=== PATIENT | female | born 1950 | race Caucasian/White ===

== ENCOUNTER 2020-01-26 09:04 | Outpatient (CLI) | payer MEDICARE, SELFPAY ==
--- NOTE | ~2020-01-26 | MM_ITS ---
EXAMINATION: MM screening [facility] BI w petar HISTORY: Screening mammogram TECHNIQUE: Craniocaudal and mediolateral oblique 3-D tomosynthesis images were obtained and synthetic 2-D images were generated. CAD analysis was submitted and interpreted. COMPARISON: 08/12/2018, 07/27/2017, 07/03/2016 BREAST PARENCHYMAL COMPOSITION: There are scattered areas of fibroglandular density. FINDINGS: There is no evidence of suspicious mass, calcification, or architectural distortion to sugg est malignancy in either breast. There has been no suspicious interval change. IMPRESSION: 1. No mammographic evidence of malignancy. 2. Recommend routine screening mammography in one year. BI-RADS Category 1: Negative Reviewed, dictated and finalized at location A.
== END 2020-01-26 09:05 | disposition home or self-care (01) ==
PROVIDERS: PCP Family Medicine; Visit Provider Internal Medicine
DX: Z12.31 Encounter for screening mammogram for malignant neoplasm of breast (principal)
CPT/HCPCS: 77063; 77067

== ENCOUNTER → 2020-05-02 11:03 | Outpatient (CLI) | payer MEDICARE, SELFPAY ==
--- NOTE | ~2020-05-02 | DEXA_ITS ---
Bone Density Report Name: Julius Bishop Age: 70 Sex: Female Ethnicity: White Date of : 1950 Indication: osteopenia; parental hip fracture; height loss; Referring Provider: Jasmina Stroud Study: Bone densitometry was performed. Exam Date: May 02, 2020 Accession number: [id number] Bone Density: Region BMD T-score Z-score Classification AP Spine (L1-L4) 0.792 -2.3 -0.3 Osteopenia Femoral Neck (Left) 0.597 -2.3 -0.6 Osteopenia Total Hip (Left) 0.722 -1.8 -0.4 Osteopenia Femoral Neck (Right) 0.620 -2.1 -0.4 Osteopenia Total Hip (Right) 0.759 -1.5 -0.1 Osteopenia Total Hip Mean 0.741 -1.7 -0.3 Osteopenia World Health Organization criteria for BMD impression classify patients as: Normal (T-score at or above -1.0), Osteopenia (T-score between -1.0 and -2.5), or Osteoporosis (T-score at or below -2.5). 10-year Fracture Risk(1): Major Osteoporotic Fracture 21% Hip Fracture 4.1% Reported Risk Factors: [place] (), Neck BMD=0.597, BMI=27.4, parental fracture (1) FRAX(R) Version 3.08. Fracture probability calculated for an untreated patient. Fracture probability may be lower if the patient has received treatment. Previous Exams: Region Exam Age BMD T-score BMD Change BMD Change Date g/cm2 vs Baseline vs Previous AP Spine(L1-L4) 05/02/2020 70 0.792 -2.3 -0.011 -0.011 10/11/2014 64 0.803 -2.2 Total Hip(Left) 05/02/2020 70 0.722 -1.8 -0.006 -0.006 10/11/2014 64 0.728 -1.8 Total Hip(Right) 05/02/2020 70 0.759 -1.5 -0.015 -0.015 10/11/2014 64 0.774 -1.4 *Denotes significance at 95% confidence level, LSC for AP Spine = 0.022 g/cm2, LSC for Total Hip = 0.027 g/cm2 Clinical Information Provided by Patient: Parent has had a hip fracture Patient maximum height was 64 Menopause Age: 53 No regular weight bearing exercise Drinks caffeinated beverages Onset of menses at age 13 Number of children 2 Impression: The patient has low bone mass, based on the Total Spine T-score. The patient has an estimated ten-year risk of hip fracture of 4.1% and an estimated ten-year risk of major fracture of 21%, based on the WHO FRAX algorithm. The patient has risk factors, including: parental hip fracture. No significant bone loss was observed. Discussion: BONE DENSITY IS LOW AT ONE OR MORE SKELETAL SITES. THE PATIENT'S BMD AND CLINICAL RISK FACTORS CONTRIBUTE TO THIS PATIENT'S
== END ==
PROVIDERS: PCP Physician Assistant Medical; Visit Provider Physician Assistant Medical
DX: Z78.0 Asymptomatic menopausal state (principal); M85.89 Other specified disorders of bone density and structure, multiple sites
CPT/HCPCS: 77080

== ENCOUNTER 2021-09-30 14:29 | Outpatient (CLI) | payer MEDICARE, SELFPAY ==
--- NOTE | ~2021-09-30 | MM_ITS ---
EXAMINATION: MM screening [facility] BI w petar HISTORY: Screening TECHNIQUE: Craniocaudal and mediolateral oblique 3-D tomosynthesis images were obtained and synthetic 2-D images were generated. CAD analysis was submitted and interpreted. COMPARISON: Comparison to multiple prior studies sequentially, with oldest reviewed study dated 10/11. BREAST PARENCHYMAL COMPOSITION: There are scattered areas of fibroglandular density. FINDINGS: There is no evidence of suspicious mass, calcification, or architectural distortion to sugg est malignancy in either breast. There has been no suspicious interval change. IMPRESSION: 1. No mammographic evidence of malignancy. 2. Recommend routine screening mammography in one year. BI-RADS Category 1: Negative Reviewed, dictated and finalized at location A. ING TACKLE REPAIRER
== END 2021-09-30 14:30 | disposition home or self-care (01) ==
LOC: ANHIMG 14:31
PROVIDERS: PCP Physician Assistant Medical; Visit Provider Nurse Practitioner Family
DX: Z12.31 Encounter for screening mammogram for malignant neoplasm of breast (principal)
CPT/HCPCS: 77063; 77067

== ENCOUNTER 2022-11-04 14:13 | Outpatient (CLI) | payer MEDICARE, SELFPAY ==
--- NOTE | ~2022-11-04 | DEXA_ITS ---
Bone Density Report Name: SEAN LAMBERT Age: 72 Sex: Female Ethnicity: White Date of : 1950 Indication: osteopenia; parental hip fracture; height loss; cancer; postmenopausal Referring Provider: CASEY GHOSH Study: Bone densitometry was performed. Exam Date: November 04, 2022 Accession number: [id number] Bone Density: Region BMD T-score Z-score Classification AP Spine(L1-L4) 0.793 -2.3 -0.2 Osteopenia Femoral Neck (Left) 0.581 -2.4 -0.6 Osteopenia Total Hip (Left) 0.734 -1.7 -0.2 Osteopenia Femoral Neck (Right) 0.578 -2.4 -0.6 Osteopenia Total Hip (Right) 0.748 -1.6 0.0 Osteopenia Total Hip Mean 0.741 -1.7 -0.1 Osteopenia World Health Organization criteria for BMD impression classify patients as: Normal (T-score at or above -1.0), Osteopenia (T-score between -1.0 and -2.5), or Osteoporosis (T-score at or below -2.5). 10-year Fracture Risk(1): Major Osteoporotic Fracture 22% Hip Fracture 7.6% Reported Risk Factors: [place] (), Neck BMD=0.581, BMI=27.1, parental fracture (1) FRAX(R) Version 3.08. Fracture probability calculated for an untreated patient. Fracture probability may be lower if the patient has received treatment. Previous Exams: Region Exam Age BMD T-score BMD Change BMD Change Date g/cm2 vs Baseline vs Previous Total Hip(Left) 11/04/2022 72 0.734 -1.7 -0.045 (-5.8%) -0.045 (-5.8%) 07/20/2017 67 0.778 -1.3 Total Hip(Right) 11/04/2022 72 0.748 -1.6 -0.076 (-9.3%) -0.076 (-9.3%) 07/20/2017 67 0.825 -1.0 *Denotes significance at 95% confidence level, LSC for Total Hip = 0.027 g/cm2 Clinical Information Provided by Patient: Parent has had a hip fracture Has used the following medications: Vitamin D, Calcium Has the following medical conditions: Cancer Patient maximum height was 64 Does not regularly consume dairy products Drinks caffeinated beverages Onset of menses at age 13 Number of children 2 Impression: The patient has low bone mass, based on the Left Femoral Neck T-score. The patient has an estimated ten-year risk of hip fracture of 7.6% and an estimated ten-year risk of major fracture of 22%, based on the WHO FRAX algorithm. The patient has risk factors, including: parental hip fracture. The BMD for the Total Hip(Left) decreased, changing by -5.8% since the last DXA exam. The BMD for the Total Hip(Right) decreased, changing by -9.3% since the last DXA exam. Discussion: BONE DENSITY IS LOW AT ONE OR MORE SKELETA
--- NOTE | ~2022-11-04 | MM_ITS ---
EXAMINATION: MM screening [facility] BI w petar HISTORY: Screening mammogram TECHNIQUE: Craniocaudal and mediolateral oblique 3-D tomosynthesis images were obtained and synthetic 2-D images were generated. CAD analysis was submitted and interpreted. COMPARISON: 09/30/2021, 01/26/2020, 08/12/2018 BREAST PARENCHYMAL COMPOSITION: There are scattered areas of fibroglandular density. FINDINGS: No suspicious mass, calcification, or architectural distortion are identified in either omaira ast to suggest malignancy. There has been no suspicious interval change. IMPRESSION: 1. No mammographic evidence of malignancy. 2. Recommend routine screening mammography in one year. BI-RADS Category 1: Negative Reviewed, dictated and finalized at location A. W MACHINE OPERATOR SINGLE SPINDLE
== END 2022-11-04 14:14 | disposition home or self-care (01) ==
LOC: ANHIMG 14:14
PROVIDERS: PCP Family Medicine; Visit Provider Nurse Practitioner Family
DX: Z12.31 Encounter for screening mammogram for malignant neoplasm of breast (principal); N95.9 Unspecified menopausal and perimenopausal disorder; M85.80 Other specified disorders of bone density and structure, unspecified site; M85.89 Other specified disorders of bone density and structure, multiple sites
CPT/HCPCS: 77063; 77067; 77080

== ENCOUNTER 2024-07-04 13:51 | Outpatient (CLI) | payer MEDICARE, OTHER, SELFPAY ==
--- NOTE | ~2024-07-04 | MM_ITS ---
EXAMINATION: MM screening [facility] BI w petar HISTORY: Screening TECHNIQUE: Craniocaudal and mediolateral oblique 3-D tomosynthesis images were obtained and synthetic 2-D images were generated. CAD analysis was submitted and interpreted. COMPARISON: Comparison to multiple prior studies sequentially, with oldest reviewed study dated 10/2015. BREAST PARENCHYMAL COMPOSITION: Not dense: There are scattered areas of fibroglandular density. FINDINGS: There is no evidence of suspicious mass, calcification, or architectural distortion to sugg est malignancy in either breast. There has been no suspicious interval change. IMPRESSION: 1. No mammographic evidence of malignancy. 2. Recommend routine screening mammography in one year. BI-RADS Category 1: Negative Reviewed, dictated and finalized at location B. AL MERCHANDISING ASSOCIATE
== END 2024-07-04 13:52 | disposition home or self-care (01) ==
LOC: ANHIMG 13:52
PROVIDERS: PCP Family Medicine; Visit Provider Physician Assistant
DX: Z12.31 Encounter for screening mammogram for malignant neoplasm of breast (principal)
CPT/HCPCS: 77063; 77067

== ENCOUNTER 2024-11-21 12:48 | Outpatient (CLI) | payer MEDICARE, OTHER, SELFPAY ==
--- NOTE | 2024-11-21 13:10 | ECG_ITS ---
Test Date: 2024-11-21 13:17:27 Measurements Intervals [place] Rate: 85 P: 41 [place]: 159 QRS: 6 QRSD: 74 T: 27 QT: 356 QTc: 425 Interpretive Statements SINUS RHYTHM POSSIBLE LEFT ATRIAL ENLARGEMENT [-0.1mV P-WAVE IN V1/V2] No previous ECG available for comparison Electronically Signed On 11-22-2024 15:32:10 CDT by Garrett Pedersen M.D.
--- OUTSIDE RECORDS SUMMARY | 2024-11-21 14:32 | XMS_ITS | Referral Summary ---
Author Organization [facility] Address [address] [place] [address] Phone Care Team Providers Care Electric Distribution Engineer Name Role Phone Karthikeyan Aguilar MD Unavailable [phone] Virgilio Santana MD Primary Care Provider [phone] Allergies Active Allergy Reactions Criticality Noted Date Comments Codeine Stomach upset Low 07/27/2018 Medications SUMAtriptan (IMITREX) 25 mg tabletIndication s:Migraine,If needed Take 25 mg by mouth once as needed for migraine. May repeat dose once in 2 hours if no relief. Do not exceed 2 doses in 24 hours. Active levothyroxine (SYNTHROID) 100 mcg tablet TAKE 1 TABLET(100 MCG) BY MOUTH DAILY 90 tablet 07/24/2020 Active Active Problems Problem Noted Date Diagnosed Date Lymphoma, Hodgkin's 12/01/1995 Cancer Staging:Clinical stage from 07/27/1996:Stage II(Hodgkin lymphoma, A - Asymptomatic) - Signed by Karthikeyan Aguilar MD on 07/27/2018 Immunizations Immunization Administration Dates Next Due Influenza, Unspecified 05/30/2019,06/26/2018,,07/15/2016 Pneumococcal, Unspecified 06/26/2018 Social History Tobacco Use Types Packs/Day Years Used Date Smoking Tobacco: Former Cigarettes Q uit: 2004 Smokeless Tobacco: Never Alcohol Use Standard Drinks/Week Comments No 0 (1 standard drink = 0.6 oz pur e alcohol) Personal Safety Answer Date Recorded Getting School Help Needed Not on file 11/14 Comments Unknown Sex and Gender Information Value Date Recorded Sex Assigned at Not on file Legal Sex Female 2:11 AM TOURIST ADVISER Gender Identity Not on file Sexual Orientation Not on file Last Filed Vital Signs Vital Sign Reading Time Taken Comments Blood Pressure 135/67 09/28/2019 11:45 AM TOURIST ADVISER Pulse 86 09/28/2019 11:45 AM TOURIST ADVISER Temperature 36.5 C (97.7 F) 09/28/2019 11:45 AM TOURIST ADVISER Respiratory Rate 16 09/28/2019 11:4 5 AM TOURIST ADVISER Oxygen Saturation 98% 09/28/2019 11: 45 AM TOURIST ADVISER Inhaled Oxygen Concentration - - Weight 67.9 kg (149 lb 12.8 oz) 020 11:45 AM TOURIST ADVISER Height 162.6 cm (5' 4.02 ) 09/28/2019 1 1:45 AM TOURIST ADVISER Body Mass Index 25.7 09/28/2019 11:45 AM TOURIST ADVISER Plan of Treatment Not on file Insurance MEDICARE [facility] Care Teams Electric Distribution Engineer Relationship Specialty Start Date End Date Virgilio Santana MD PCP - General Family Medicine 07/27/18 Karthikeyan Aguilar MD Medical Oncologist/Director Of Pediatric Rehabilitation Hematology and Oncology 07/20/18
--- OUTSIDE RECORDS SUMMARY | 2024-11-21 14:32 | XMS_ITS | Encounter Summary ---
Author Organization [facility] Address [address] [facility] [place] [address] Phone Care Team Providers Care Commercial Real Estate Sales Manager Name Role Phone Karthikeyan Aguilar MD Unavailable [phone] Virgilio Santana MD Primary Care Provider [phone] Encounter Details Date Type Department Care Team (Latest Contact Info) Description 01/26/2020 Orders Only [facility] Scanning, Provider Social History Tobacco Use Types Packs/Day Years Used Date Smoking Tobacco: Former Cigarettes Q uit: 2004 Smokeless Tobacco: Never Alcohol Use Standard Drinks/Week Comments No 0 (1 standard drink = 0.6 oz pur e alcohol) Comments Unknown Sex and Gender Information Value Date Recorded Sex Assigned at Not on file Legal Sex Female 2:11 AM DESIGN SUPERVISOR Gender Identity Not on file Sexual Orientation Not on file documented as of this encounter Plan of Treatment Not on file documented as of this encounter Procedures Procedure Name Priority Date/Time Associated Diagnosis Comments SCAN - RADIOLOGY/IMAGING 01/26/2020 documented in this encounter Results * SCAN - RADIOLOGY/IMAGING (01/26/2020) Anatomical Region Laterality Modality Other us Provider Scanning Final Result documented in this encounter Visit Diagnoses Not on filedocumented in this encounter Care Teams Commercial Real Estate Sales Manager Relationship Specialty Start Date End Date Virgilio Santana MD PCP - General Family Medicine 07/27/18 Karthikeyan Aguilar MD Medical Oncologist/Palletizer Hematology and Oncology 07/20/18 documented as of this encounter
--- OUTSIDE RECORDS SUMMARY | 2024-11-21 14:32 | XMS_ITS | Clinical Summary ---
Author Organization [facility] Address [address] [place] [address] Phone Care Team Providers Care Nuclear Station Operator Name Role Phone Karthikeyan Aguilar MD Unavailable [phone] Virgilio Santana MD Primary Care Provider [phone] Allergies Active Allergy Reactions Criticality Noted Date [...] Due Influenza, Unspecified 05/30/2019,06/26/2018,,07/15/2016 Pneumococcal, Unspecified 06/26/2018 Surgical History Surgery Date Site/Laterality Comments COLONOSCOPY Medical History Medical History Date Comments Lymphoma (HCC) Hypercholesteremia Family History Medical History Relation Name Comments Non-Hodgkin's Lymphoma Brother Prostate cancer Brother Cancer Father Diabetes Mother Skin cancer Sister Relation Name Status Comments Brother Father unkown age of d iagnosis and type of cancer Mother Sister Social History Tobacco Use Types Packs/Day Years Used Date Smoking Tobacco: Former Cigarettes Q uit: 2005 Smokeless Tobacco: Never Alcohol Use Standard Drinks/Week Comments No 0 (1 standard drink = 0.6 oz pur e alcohol) Personal Safety Answer Date Recorded Getting School Help Needed Not on file 11/14 Comments Unknown Sex and Gender Information Value Date Recorded Sex Assigned at Not on file Legal Sex Female 2:11 AM TRANSIT POLICE OFFICER Gender Identity Not on file Sexual Orientation Not on file Obstetrics History Last Filed Vital Signs Vital Sign Reading Time Taken Comments Blood Pressure 135/67 09/28/2019 11:45 AM TRANSIT POLICE OFFICER Pulse 86 09/28/2019 11:45 AM TRANSIT POLICE OFFICER Temperature 36.5 C (97.7 F) 09/28/2019 11:45 AM TRANSIT POLICE OFFICER Respiratory Rate 16 09/28/2019 11:4 5 AM TRANSIT POLICE OFFICER Oxygen Saturation 98% 09/28/2019 11: 45 AM TRANSIT POLICE OFFICER Inhaled Oxygen Concentration - - Weight 67.9 kg (149 lb 12.8 oz) 020 11:45 AM TRANSIT POLICE OFFICER Height 162.6 cm (5' 4.02 ) 09/28/2019 1 1:45 AM TRANSIT POLICE OFFICER Body Mass Index 25.7 09/28/2019 11:45 AM TRANSIT POLICE OFFICER Plan of Treatment Not on file Insurance MEDICARE [facility] Care Teams Nuclear Station Operator Relationship Specialty Start Date End Date Virgilio Santana MD PCP - General Family Medicine 07/27/18 Karthikeyan Aguilar MD Medical Oncologist/Corporate Strategist Hematology and Oncology 07/20/18
== END 2024-11-21 12:49 | disposition home or self-care (01) ==
LOC: ANHCARD 12:51
PROVIDERS: PCP Family Medicine; Visit Provider Nurse Practitioner Family
DX: R06.02 Shortness of breath (principal)
CPT/HCPCS: 93005

== ENCOUNTER 2024-12-05 08:07 | Outpatient (CLI) | payer MEDICARE, OTHER, SELFPAY ==
--- OUTSIDE RECORDS SUMMARY | 2024-12-05 08:18 | XMS_ITS | Clinical Summary ---
Author Organization [facility] Address [address] [place] [address] Phone Care Team Providers Care Sky Line Yarder Name Role Phone Karthikeyan Aguilar MD Unavailable [phone] Virgilio Santana MD Primary Care Provider [phone] Allergies Active Allergy Reactions Criticality Noted Date [...] on file Legal Sex Female 2:11 AM ANTENNA MACHINE OPERATOR Gender Identity Not on file Sexual Orientation Not on file Obstetrics History Last Filed Vital Signs Vital Sign Reading Time Taken Comments Blood Pressure 135/67 09/28/2019 11:45 AM ANTENNA MACHINE OPERATOR Pulse 86 09/28/2019 11:45 AM ANTENNA MACHINE OPERATOR Temperature 36.5 C (97.7 F) 09/28/2019 11:45 AM ANTENNA MACHINE OPERATOR Respiratory Rate 16 09/28/2019 11:4 5 AM ANTENNA MACHINE OPERATOR Oxygen Saturation 98% 09/28/2019 11: 45 AM ANTENNA MACHINE OPERATOR Inhaled Oxygen Concentration - - Weight 67.9 kg (149 lb 12.8 oz) 020 11:45 AM ANTENNA MACHINE OPERATOR Height 162.6 cm (5' 4.02 ) 09/28/2019 1 1:45 AM ANTENNA MACHINE OPERATOR Body Mass Index 25.7 09/28/2019 11:45 AM ANTENNA MACHINE OPERATOR Plan of Treatment Not on file Insurance MEDICARE [facility] Care Teams Sky Line Yarder Relationship Specialty Start Date End Date Virgilio Santana MD PCP - General Family Medicine 07/27/18 Karthikeyan Aguilar MD Medical Oncologist/Car Unloader Helper Hematology and Oncology 07/20/18
--- OUTSIDE RECORDS SUMMARY | 2024-12-05 08:18 | XMS_ITS | Encounter Summary ---
Author Organization [facility] Address [address] [place] [address] Phone Care Team Providers Care Cell Inspector Name Role Phone Karthikeyan Aguilar MD Unavailable [phone] Virgilio Santana MD Primary Care Provider [phone] Encounter Details Date Type Department Care Team [...] on file Legal Sex Female 2:11 AM FERRYBOAT OPERATOR HELPER Gender Identity Not on file Sexual Orientation [...] on filedocumented in this encounter Care Teams Cell Inspector Relationship Specialty Start Date End Date Virgilio Santana MD PCP - General Family Medicine 07/27/18 Karthikeyan Aguilar MD Medical Oncologist/Public Service Director Hematology and Oncology 07/20/18 documented as of this encounter
--- OUTSIDE RECORDS SUMMARY | 2024-12-05 08:18 | XMS_ITS | Referral Summary ---
Author Organization [facility] Address [address] [place] [address] Phone Care Team Providers Care Medicaid Specialist Name Role Phone Karthikeyan Aguilar MD Unavailable [phone] Virgilio Santana MD Primary Care Provider [phone] Allergies Active Allergy Reactions Criticality Noted Date [...] on file Legal Sex Female 2:11 AM FORM WORKER Gender Identity Not on file Sexual Orientation Not on file Last Filed Vital Signs Vital Sign Reading Time Taken Comments Blood Pressure 135/67 09/28/2019 11:45 AM FORM WORKER Pulse 86 09/28/2019 11:45 AM FORM WORKER Temperature 36.5 C (97.7 F) 09/28/2019 11:45 AM FORM WORKER Respiratory Rate 16 09/28/2019 11:4 5 AM FORM WORKER Oxygen Saturation 98% 09/28/2019 11: 45 AM FORM WORKER Inhaled Oxygen Concentration - - Weight 67.9 kg (149 lb 12.8 oz) 020 11:45 AM FORM WORKER Height 162.6 cm (5' 4.02 ) 09/28/2019 1 1:45 AM FORM WORKER Body Mass Index 25.7 09/28/2019 11:45 AM FORM WORKER Plan of Treatment Not on file Insurance MEDICARE [facility] Care Teams Medicaid Specialist Relationship Specialty Start Date End Date Virgilio Santana MD PCP - General Family Medicine 07/27/18 Karthikeyan Aguilar MD Medical Oncologist/Engineer Chief Hematology and Oncology 07/20/18
--- NOTE | 2024-12-05 08:40 | EST_ITS ---
Patient Info Name: Julius Bishop Age: 74 years : 1950 Gender: Female Ht: 64 in Wt: 160 lbs BSA: 1.83 m2 HR: 82 bpm BP: 129 / 92 mmHg Exam Date: 12/05/2024 8:51 AM Exam Location: Echo Lab Patient Status: Outpatient Admit Date: 12/05/2024 Staff Ordering Physician: Ruth Guzman Attending Provider: Ruth Guzman Exercise Technologist: Anabel Sykes RDCS Exercise Physician: Santiago Martinez DO Exam Type: CA stress test treadmill Study Info A treadmill exercise stress test was performed. Summary 1. 1. Negative Danilo exercise stress test for ischemic ST changes by ECG criteria. 2. 2. Reduced functional capacity, achieving 4.7 METs of workload. 3. 3. Appropriate HR response to exercise. 4. 4. Appropriate HR recovery at 1 minute post exercise. 5. 5. No imaging with stress testing. 6. 6. Patient informed of the above results. Protocol: Danilo Stress ECG Details Stage: REST Duration (min): 1 min : 15 sec Speed (mph): 0.0 Grade (%): 0 HR (bpm): 84 SBP (mmHg): 129 DBP (mmHg): 92 METS: --- Stage: REST Duration (min): 8 min : 47 sec Speed (mph): 0.0 Grade (%): 0 HR (bpm): 86 SBP (mmHg): 129 DBP (mmHg): 92 METS: --- Stage: STAGE 1 Duration (min): 1 min : 0 sec Speed (mph): 1.7 Grade (%): 10 HR (bpm): 118 SBP (mmHg): 129 DBP (mmHg): 92 METS: --- Stage: STAGE 1 Duration (min): 2 min : 0 sec Speed (mph): 1.7 Grade (%): 10 HR (bpm): 127 SBP (mmHg): 129 DBP (mmHg): 92 METS: --- Stage: STAGE 1 Duration (min): 3 min : 0 sec Speed (mph): 1.7 Grade (%): 10 HR (bpm): 133 SBP (mmHg): 165 DBP (mmHg): 100 METS: --- Stage: STAGE 2 Duration (min): 0 min : 1 sec Speed (mph): 2.5 Grade (%): 12 HR (bpm): 133 SBP (mmHg): 165 DBP (mmHg): 100 METS: --- Stage: RECOVERY Duration (min): 0 min : 58 sec Speed (mph): 0.0 Grade (%): 0 HR (bpm): 119 SBP (mmHg): 165 DBP (mmHg): 100 METS: --- Stage: RECOVERY Duration (min): 1 min : 58 sec Speed (mph): 0.0 Grade (%): 0 HR (bpm): 104 SBP (mmHg): 165 DBP (mmHg): 100 METS: --- Stage: RECOVERY Duration (min): 2 min : 58 sec Speed (mph): 0.0 Grade (%): 0 HR (bpm): 95 SBP (mmHg): 142 DBP (mmHg): 96 METS: --- Stage: RECOVERY Duration (min): 3 min : 12 sec Speed (mph): 0.0 Grade (%): 0 HR (bpm): 89 SBP (mmHg): 142 DBP (mmHg): 96 METS: --- Rest HR: 86 bpm Peak HR: 133 bpm Rest Sys BP: 129 mmHg Peak Sys BP: 165 mmHg Max Pred HR: 148 bpm % Max Pred HR: 90 % Target HR: 126 bpm Max RPP: 21,945 bpm*mmHg Temple Score: 1 Termination Reason: Reached target heart rate or workload Cardiac Symptoms: Shortness of breath Max ST Seg Deviation: 0.40 mm Total Time: 3 min : 1 sec Rest Walsh BP: 92 mmHg Peak Walsh BP: 100 mmHg Angina Score: None Total METS: 4.7 Resting ECG Sinus rhythm. Stress ECG No ST changes. Arrhythmias None. Report Signatures
== END 2024-12-05 08:08 | disposition home or self-care (01) ==
PROVIDERS: PCP Family Medicine; Visit Provider Nurse Practitioner Family
DX: R06.02 Shortness of breath (principal); R94.31 Abnormal electrocardiogram [ECG] [EKG]
CPT/HCPCS: 93017

== ENCOUNTER 2025-01-09 00:15 | Day surgery (SDC) | payer MEDICARE, OTHER, SELFPAY ==
[2025-01-04 09:52] VITALS: BMI 26.8
--- OUTSIDE RECORDS SUMMARY | 2025-01-09 00:18 | XMS_ITS | Encounter Summary ---
Author Organization [facility] Address [address] [place] [address] Phone Care Team Providers Care Financial Aid Administrator Name Role Phone Karthikeyan Aguilar MD Unavailable [phone] Virgilio Santana MD Primary Care Provider [phone] Encounter Details Date Type Department Care Team [...] on file Legal Sex Female 2:11 AM EMAIL MARKETER Gender Identity Not on file Sexual Orientation [...] on filedocumented in this encounter Care Teams Financial Aid Administrator Relationship Specialty Start Date End Date Virgilio Santana MD PCP - General Family Medicine 07/27/18 Karthikeyan Aguilar MD Medical Oncologist/Surface Ship Usw Supervisor Hematology and Oncology 07/20/18 documented as of this encounter
--- OUTSIDE RECORDS SUMMARY | 2025-01-09 00:18 | XMS_ITS | Referral Summary ---
Author Organization [facility] Address [address] [place] [address] Phone Care Team Providers Care Fruit Sprayer Name Role Phone Karthikeyan Aguilar MD Unavailable [phone] Virgilio Santana MD Primary Care Provider [phone] Allergies Active Allergy Reactions Criticality Noted Date [...] on file Legal Sex Female 2:11 AM PERSONAL CAREGIVER Gender Identity Not on file Sexual Orientation Not on file Last Filed Vital Signs Vital Sign Reading Time Taken Comments Blood Pressure 135/67 09/28/2019 11:45 AM PERSONAL CAREGIVER Pulse 86 09/28/2019 11:45 AM PERSONAL CAREGIVER Temperature 36.5 C (97.7 F) 09/28/2019 11:45 AM PERSONAL CAREGIVER Respiratory Rate 16 09/28/2019 11:4 5 AM PERSONAL CAREGIVER Oxygen Saturation 98% 09/28/2019 11: 45 AM PERSONAL CAREGIVER Inhaled Oxygen Concentration - - Weight 67.9 kg (149 lb 12.8 oz) 020 11:45 AM PERSONAL CAREGIVER Height 162.6 cm (5' 4.02 ) 09/28/2019 1 1:45 AM PERSONAL CAREGIVER Body Mass Index 25.7 09/28/2019 11:45 AM PERSONAL CAREGIVER Plan of Treatment Not on file Insurance [facility]ICARE [facility] Care Teams Fruit Sprayer Relationship Specialty Start Date End Date Virgilio Santana MD PCP - General Family Medicine 07/27/18 Karthikeyan Aguilar MD Medical Oncologist/Artificial Breeding Distributor Hematology and Oncology 07/20/18
--- OUTSIDE RECORDS SUMMARY | 2025-01-09 00:18 | XMS_ITS | Clinical Summary ---
Author Organization [facility] Address [address] [place] [address] Phone Care Team Providers Care Secondary Special Education Teacher Name Role Phone Karthikeyan Aguilar MD Unavailable [phone] Virgilio Santana MD Primary Care Provider [phone] Allergies Active Allergy Reactions Criticality Noted Date [...] on file Legal Sex Female 2:11 AM GUIDE [facility] Gender Identity Not on file Sexual Orientation Not on file Obstetrics History Last Filed Vital Signs Vital Sign Reading Time Taken Comments Blood Pressure 135/67 09/28/2019 11:45 AM [facility] Pulse 86 09/28/2019 11:45 AM GUIDE EXCURSION Temperature 36.5 C (97.7 F) 09/28/2019 11:45 AM GUIDE EXCURSION Respiratory Rate 16 09/28/2019 11:4 5 AM GUIDE [facility] Oxygen Saturation 98% 09/28/2019 11: 45 AM GUIDE EXCURSION Inhaled Oxygen Concentration - - Weight 67.9 kg (149 lb 12.8 oz) 020 11:45 AM GUIDE EXCURSION Height 162.6 cm (5' 4.02 ) 09/28/2019 1 1:45 AM GUIDE EXCURSION Body Mass Index 25.7 09/28/2019 11:45 AM GUIDE EXCURSION Plan of Treatment Not on file [place] [address] [facility] Care Teams Secondary Special Education Teacher Relationship Specialty Start Date End Date Virgilio Santana MD PCP - General Family Medicine 07/27/18 Karthikeyan Aguilar MD Medical Oncologist/Customer Energy Specialist Hematology and Oncology 07/20/18
[2025-01-09 09:45] VITALS: BP 131/80; PULSE 86; RESP 18; TEMP 36.7; O2SAT 97
[2025-01-09] MEDS: LACTATED RINGERS 1,000 ML 150 ML IV CONT (09:52)
--- NOTE | 2025-01-09 09:57 | WPDANESEPPF ---
Anes - Initial Pre Proc Eval Procedure: Operation Date: 01/09/25 11:00 Proposed Procedures p Colonoscopy - Joe Silva MD Date/Time: 01/09/25 09:57 Surgeon: Joe Silva MD Pre Op Diagnosis: Other fecal abnormalities Patient Data Age: 74 Gender: F Height: 1.63 m Weight: 68.6 kg Last Vital Signs Temp 36.7 C 01/09/25 09:45 Pulse 86 01/09/25 09:45 Resp 18 01/09/25 09:45 BP 131/80 01/09/25 09:45 Pulse Ox 97 01/09/25 09:45 O2 Del Method Room Air 01/09/25 09:45 Allergies Allergy/AdvReac Type Severity Reaction Status Date / Time clarithromycin AdvReac Intermediate Nausea Verified 01/09/25 09:43 codeine AdvReac Intermediate Nausea Verified 01/09/25 09:43 Home Medications ?Medication ?Instructions ?Recorded ?Confirmed ?Type fluticasone propionate 50 1 spray intranasal BID #16 grams 11/04/23 01/09/25 Rx mcg/actuation nasal spray,suspension (Flonase Allergy Relief) sumatriptan succinate 100 mg tablet See Rx Instructions .Route 09/28/24 01/04/25 Rx .COMPLEX #9 tabs levothyroxine 100 mcg tablet 100 mcg PO DAILY #90 tabs 10/25/24 01/09/25 Rx calcium carbonate (Calcium 600) 600 mg PO DAILY 01/04/25 01/09/25 History cholecalciferol (vitamin D3) 125 125 mcg PO DAILY 01/04/25 01/09/25 History mcg (5,000 unit) tablet (Vitamin D3) loratadine 10 mg tablet 10 mg PO DAILY 01/04/25 01/09/25 History (Allerclear) omeprazole 20 mg capsule,delayed 20 mg PO DAILY 01/04/25 01/09/25 History release psyllium husk 0.52 gram capsule 0.52 g PO DAILY 01/04/25 01/09/25 History (Daily Fiber) Patient hx anesthesia problems: none Family hx anesthesia problems: none Results Review: All pre-operative results and documents have been reviewed as part of the pre-operative evaluation. ON LICENSE OF [facility] Past Medical History Medical History Hodgkin lymphoma Tubal ligation evaluation BMI 28.0-28.9,adult Surgical History Surgical History Hx of colonoscopy Family History Family History Sibling Hypertension Migraine Malignant neoplasm of prostate Mother Family history of diabetes mellitus in first degree relative Diabetes mellitus Father , cancer No problems noted. Social History Social History Smoking packs per day: 0.5 Smoking cigarettes per day: 10.0 Years smoked: 25 Smoking pack-years: 12.50 Smoking status: Former smoker Tobacco type: cigarettes Second hand tobacco smoke exposure: Yes Alcohol intake: never Substance use: never Substance use type: does not use Do You Feel Safe in your Home?: Yes Lack of Transportation: No Lack of Food: Never True Current Housing: I Have Housing Concerned About Future Housing: No Difficulty Paying Gas/Electric Bills: No Difficulty Paying for Meds: No Currently Unemployed: No Education: Trade/Vocational Certificate Difficulty w/ Childcare or Family Care: No Living arrangements: with family Occupation/Education: retired 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 Gender identity (if verbalized by the patient): Female Spiritual care concerns: No Anes - Eval Final PreProcedure Day of Procedure 01/09/25 09:57 Patient weight: overweight Heart: regular rate and rhythm Lungs: clear to auscultation Airway: Mallampati scale class II Neurological: alert and oriented Last oral intake: >/= 8 hours ASA classification: III Emergent: no Anesthetic plan: proceed Anesthesia type and monitoring: general GIVS and standard monitoring Results Review: All pre-operative results and documents have been reviewed as part of the pre-operative evaluation. Informed Consent: The patient's anesthetic plan and its attendant risks and benefits were discussed with the patient/family/POA. Questions were solicited and answers provided to the satisfaction of the patient/family/POA.
--- NOTE | 2025-01-09 10:52 | P.HP_ITS ---
H&P: HPI History of Present Illness Date/Time: 01/09/25 10:52 Chief Complaint: Positive Cologuard test Narrative: the patient was recently found to have a Cologuard positive test. Her last colonoscopy was over 10 years ago. She is asymptomatic from the GI standpoint. There is no family history of colorectal cancer. Review of Systems Review of Systems: All systems reviewed & are unremarkable except as noted in HPI and below PMFSH Past Medical History Medical History Hodgkin lymphoma Tubal ligation evaluation BMI 28.0-28.9,adult Surgical History Surgical History Hx of colonoscopy Family History Family History Sibling Hypertension Migraine Malignant neoplasm of prostate Mother Family history of diabetes mellitus in first degree relative Diabetes mellitus Father , cancer No problems noted. Social History Social History Smoking packs per day: 0.5 Smoking cigarettes per day: 10.0 Years smoked: 25 Smoking pack-years: 12.50 Smoking status: Former smoker Tobacco type: cigarettes Second hand tobacco smoke exposure: Yes Alcohol intake: never Substance use: never Substance use type: does not use Do You Feel Safe in your Home?: Yes Lack of Transportation: No Lack of Food: Never True Current Housing: I Have Housing Concerned About Future Housing: No Difficulty Paying Gas/Electric Bills: No Difficulty Paying for Meds: No Currently Unemployed: No Education: Trade/Vocational Certificate Difficulty w/ Childcare or Family Care: No Living arrangements: with family Occupation/Education: retired 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 Gender identity (if verbalized by the patient): Female Spiritual care concerns: No Meds Home Medications and Allergies Home Medications ?Medication ?Instructions ?Recorded ?Confirmed ?Type fluticasone propionate 50 1 spray intranasal BID #16 grams 11/04/23 01/09/25 Rx mcg/actuation nasal spray,suspension (Flonase Allergy Relief) sumatriptan succinate 100 mg tablet See Rx Instructions .Route 09/28/24 01/04/25 Rx .COMPLEX #9 tabs levothyroxine 100 mcg tablet 100 mcg PO DAILY #90 tabs 10/25/24 01/09/25 Rx calcium carbonate (Calcium 600) 600 mg PO DAILY 01/04/25 01/09/25 History cholecalciferol (vitamin D3) 125 125 mcg PO DAILY 01/04/25 01/09/25 History mcg (5,000 unit) tablet (Vitamin D3) loratadine 10 mg tablet 10 mg PO DAILY 01/04/25 01/09/25 History (Allerclear) omeprazole 20 mg capsule,delayed 20 mg PO DAILY 01/04/25 01/09/25 History release psyllium husk 0.52 gram capsule 0.52 g PO DAILY 01/04/25 01/09/25 History (Daily Fiber) Allergies Allergy/AdvReac Type Severity Reaction Status Date / Time clarithromycin AdvReac Intermediate Nausea Verified 01/09/25 09:43 codeine AdvReac Intermediate Nausea Verified 01/09/25 09:43 Vital Signs Vital Signs - 24 hr 01/09/25 09:45 Temperature 98.1 F Pulse Rate 86 Respiratory Rate 18 Blood Pressure 131/80 Pulse Oximetry 97 Oxygen Delivery Room Air Exam Const: General: cooperative and healthy appearing Resp: Effort & Inspection: normal respiratory effort and able to speak in complete sentences Auscultation: clear to auscultation bilaterally Cardio: Rate: regular rate Rhythm: regular rhythm GI: Inspection: normal to inspection GI Palp: No No hepatosplenomegaly present Auscultation: normal bowel sounds Rectal Exam: deferred Skin: General skin exam: normal color Psych: Appearance: grossly normal Mental Status: mental status grossly normal Assessment and Plan Assessment and plan (1) Positive colorectal cancer screening using Cologuard test: Code(s): R19.5 - Other fecal abnormalities Status: Acute Assessment and Plan: The patient is deemed a good candidate for the procedure. Consent signed. Will proceed.
[2025-01-09] MEDS: SIMETHICONE ORAL SUSPENSION 20 MG/0.3 ML 30 ML BOTTLE 0.6 ML IRRIGATION (11:06)
[2025-01-09 11:14] VITALS: BP 94/55; PULSE 87; RESP 16; O2SAT 92
[2025-01-09 11:24] VITALS: BP 111/58; PULSE 85; RESP 17; O2SAT 97
[2025-01-09 11:34] VITALS: BP 114/75; PULSE 72; RESP 22; O2SAT 96
== END 2025-01-09 11:49 | disposition home or self-care (01) ==
PROVIDERS: PCP Family Medicine; Referring Provider Nurse Practitioner Family; Visit Provider Internal Medicine Gastroenterology
PROC: 0DJD8ZZ Inspection of Lower Intestinal Tract, Via Natural or Artificial Opening Endoscopic (ICD-10-PCS; CPT 45378; principal; 2025-01-09 11:00)
DX: R19.5 Other fecal abnormalities (principal); D12.2 Benign neoplasm of ascending colon; K57.30 Diverticulosis of large intestine without perforation or abscess without bleeding; Z85.72 Personal history of non-Hodgkin lymphomas; Z87.891 Personal history of nicotine dependence; Z80.42 Family history of malignant neoplasm of prostate
CPT/HCPCS: 45385; 88305; J2003; J2704; J7120

== ENCOUNTER 2025-06-28 19:09 | Emergency (ER) | payer MEDICARE, OTHER, SELFPAY ==
[2025-06-28 19:19] VITALS: BP 140/77; PULSE 95; RESP 16; TEMP 37.1; O2SAT 98
--- NOTE | 2025-06-28 19:29 | ED.EAR ---
HPI - Ear Problem General Chief complaint: Ear Stated complaint: Ear Pain Time Seen by Provider: 06/28/25 19:29 Source: patient Mode of arrival: ambulatory Limitations: no limitations History of Present Illness HPI Narrative: 75-year-old he female presents with complaint of muffled hearing to bilateral ears. Reports clogged sensation. Reports congestion, postnasal drainage. Takes Claritin daily. All systems reviewed and negative except as noted above. Related Data Home Medications ?Medication ?Instructions ?Recorded ?Confirmed ?Last Taken ?Type calcium carbonate (Calcium 600) 600 mg PO DAILY 01/04/25 06/28/25 01/08/25 History cholecalciferol (vitamin D3) 125 125 mcg PO DAILY 01/04/25 06/28/25 01/08/25 History mcg (5,000 unit) tablet (Vitamin D3) loratadine 10 mg tablet 10 mg PO DAILY 01/04/25 06/28/25 01/08/25 History (Allerclear) omeprazole 20 mg capsule,delayed 20 mg PO DAILY 01/04/25 06/28/25 01/08/25 History release Allergies Allergy/AdvReac Type Severity Reaction Status Date / Time clarithromycin AdvReac Intermediate Nausea Verified 06/28/25 19:21 codeine AdvReac Intermediate Nausea Verified 06/28/25 19:21 [facility] Past Medical History Medical History Hodgkin lymphoma Tubal ligation evaluation BMI 28.0-28.9,adult Surgical History Surgical History Hx of colonoscopy Family History Family History Sibling Hypertension Migraine Malignant neoplasm of prostate Mother Family history of diabetes mellitus in first degree relative Diabetes mellitus Father , cancer No problems noted. Social History Social History Smoking packs per day: 0.5 Smoking cigarettes per day: 10.0 Years smoked: 25 Smoking pack-years: 12.50 Smoking status: Former smoker Tobacco type: cigarettes Second hand tobacco smoke exposure: Yes Alcohol intake: never Substance use: never Substance use type: does not use Do You Feel Safe in your Home?: Yes Lack of Transportation: No Lack of Food: Never True Current Housing: I Have Housing Concerned About Future Housing: No Difficulty Paying Gas/Electric Bills: No Difficulty Paying for Meds: No Currently Unemployed: No Education: Trade/Vocational Certificate Difficulty w/ Childcare or Family Care: No Living arrangements: with family Occupation/Education: retired 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 Gender identity (if verbalized by the patient): Female Spiritual care concerns: No Comments At time of signature, agree with nursing past medical, surgical, social and family history. There is no relevant family history pertinent to the presenting complaint. Exam Narrative: GENERAL: This is a well-nourished, well-developed patient, in no apparent distress. HEAD: normocephalic, atraumatic. EYES: PERRL. Sclera clear/white. Vision is grossly intact. EARS: External ears normal, auditory canals clear and without drainage, fluid bilateral TMs, worse to left TM with erythema and bulging. Dull light reflex bilaterally. No perforation bilaterally.. Hearing grossly intact. NOSE: External nose normal with no obvious nasal discharge, nares without redness, no rhinorrhea. THROAT: Mucous membranes moist, posterior pharynx clear. NECK: Neck supple, non-tender without lymphadenopathy, masses or thyromegaly. CARDIOVASCULAR: Regular rate and rhythm without murmurs, gallops, or rubs. RESPIRATORY: Clear to auscultation. Breath sounds equal bilaterally. No wheezes, rales, or rhonchi. SKIN: warm, Dry, intact with no suspicious lesions or rash, good texture and turgor. NEURO: awake, alert, and oriented to person, place and time. There were no obvious focal neurologic abnormalities. EXTREMITIES: No joint tenderness, effusion, or edema noted. Course Course Level of Care: Express Care Visit Vital Signs Vital signs: Vital Signs Temperature 37.1 C 06/28/25 19:19 Pulse Rate 95 06/28/25 19:19 Respiratory Rate 16 06/28/25 19:19 Blood Pressure 140/77 06/28/25 19:19 Pulse Oximetry 98 06/28/25 19:19 Temperature 37.1 C 06/28/25 19:19 Pulse Rate 95 06/28/25 19:19 Respiratory Rate 16 06/28/25 19:19 Blood Pressure 140/77 06/28/25 19:19 Pulse Oximetry 98 06/28/25 19:19 Reviewed Medical Decision Making MDM Narrative Medical decision making narrative: Will treat left serous otitis media with amoxicillin. Will treat acute sinusitis, serous otitis media with Medrol Dosepak, Flonase and Claritin. Recommend follow-up with primary care physician as needed. Vital Signs Vital Signs: Vital Signs Temperature 37.1 C 06/28/25 19:19 Pulse Rate 95 06/28/25 19:19 Respiratory Rate 16 06/28/25 19:19 Blood Pressure 140/77 06/28/25 19:19 Pulse Oximetry 98 06/28/25 19:19 Temperature 37.1 C 06/28/25 19:19 Pulse Rate 95 06/28/25 19:19 Respiratory Rate 16 06/28/25 19:19 Blood Pressure 140/77 06/28/25 19:19 Pulse Oximetry 98 06/28/25 19:19 Discharge Plan Discharge Clinical Impression: Acute sinusitis, Acute serous otitis media of left ear Patient Disposition: Home Condition: Stable Instructions: Antibiotic Form, Fluid In The Ear (Serous Otitis Media) (ED) Additional Instructions: Take medications as prescribed. Start steroids tomorrow morning. Continue to take Claritin daily. Use Flonase as directed on packaging. Drink at least 64 oz water a day. See your doctor if symptoms are not improving. Patient Language: Serbian Prescriptions: New amoxicillin 875 mg tablet 875 mg PO Q12H 10 Days Qty: 20 0RF methylprednisolone [Medrol (Memo)] 4 mg tablets,dose pack See Rx Instructions PO .COMPLEX Qty: 21 0RF Rx Instructions: orally per package directions No Action fluticasone propionate [Flonase Allergy Relief] 50 mcg/actuation spray,suspension 1 spray intranasal BID Qty: 16 5RF Patient Comments: patient states PRN Rx Instructions: administer into each nostril omeprazole 20 mg capsule,delayed release(DR/EC) 20 mg PO DAILY cholecalciferol (vitamin D3) [Vitamin D3] 125 mcg (5,000 unit) tablet 125 mcg PO DAILY calcium carbonate [Calcium 600] 600 mg calcium (1,500 mg) tablet 600 mg PO DAILY loratadine [Allerclear] 10 mg tablet 10 mg PO DAILY sumatriptan succinate 100 mg tablet See Rx Instructions .ROUTE .COMPLEX Qty: 9 0RF Dose Instruction: TAKE 1 TABLET BY MOUTH AT ONSET OF HEADACHE; IF NO RELIEF, MAY REPEAT 1 TABLET AFTER AT LEAST 2 HOURS. MAX 2 TABLETS IN24 HOURS Rx Instructions: TAKE 1 TABLET BY MOUTH AT ONSET OF HEADACHE; IF NO RELIEF, MAY REPEAT 1 TABLET AFTER AT LEAST 2 HOURS. MAX 2 TABLETS IN24 HOURS levothyroxine 100 mcg tablet 100 mcg PO DAILY Qty: 90 1RF Follow-up/Referrals: Virgilio Santana MD [Primary Care Provider, [facility]] Time of Disposition: 19:39
== END 2025-06-28 19:43 | disposition home or self-care (01) ==
PROVIDERS: Emergency Provider Nurse Practitioner Family; PCP Family Medicine
DX: J01.90 Acute sinusitis, unspecified (principal); H65.02 Acute serous otitis media, left ear; Z85.71 Personal history of Hodgkin lymphoma; Z87.891 Personal history of nicotine dependence
CPT/HCPCS: 99213; G0463